=== PATIENT | female | born 1960 | race Caucasian/White ===

== ENCOUNTER 2017-10-20 09:11 | Emergency (ER) | payer BC ==
--- NOTE | 2017-10-20 10:05 | UC ---
Respiratory Complaint HPI - HPI Summary HPI Summary: Pt presents with a dry cough for 1 week. [place] and 1 week ago developed a dry cough that she now feels is developing into chest congestion. She has an albuterol inhaler with her, but has not been using it. She has not been taking anything OTC. Denies fever, chills, sore throat, SOB , chest pain, abdominal pain, n/v/d/c. - History of Current Complaint Chief Complaint: UCGeneralIllness Stated Complaint: RESP ISSUE Time Seen by Provider: 10/20/17 10:05 Hx Obtained From: Patient Onset/Duration: Gradual Onset Severity Currently: None Pain Intensity: 0 Character: Cough: Nonproductive - Allergies/Home Medications Allergies/Adverse Reactions: Allergies Allergy/AdvReac Type Severity Reaction Status Date / Time moxifloxacin [From Avelox] Allergy Hives Verified 10/20/17 09:26 Sulfa (Sulfonamide Allergy Hives Verified 10/20/17 09:26 Antibiotics) Home Medications: Home Medications ARIPiprazole TAB* [Abilify TAB*] 1 tab PO BEDTIME 10/20/17 [History Confirmed 10/20/17] Albuterol HFA INHALER* [Ventolin HFA Inhaler*] 2 puff INH Q4HR PRN 10/20/17 [ History Confirmed 10/20/17] Calcium Carb/Vitamin D3/Vit K1 [Calcium + D Soft Chewable Tab] 1 tab PO BID 09/08 [History Confirmed 10/20/17] Cetirizine* [ZyrTEC 10 MG TAB*] 10 mg PO DAILY 10/20/17 [History Confirmed 10/20] DULoxetine CAP* [Cymbalta CAP*] 1 tab PO DAILY 10/20/17 [History Confirmed ] EPINEPHrine [Epipen] 1 inj IM SEE INSTRUCTIONS PRN 10/20/17 [History Confirmed 10/20/17] Fluticasone NASAL SPRAY 50MCG* [Flonase NASAL SPRAY 50MCG*] 1 spray BOTH NARES DAILY 10/20/17 [History Confirmed 10/20/17] Fluticasone-Salmeterol 100-50* [Advair Diskus 100-50*] 1 puff INH DAILY [History Confirmed 10/20/17] Losartan/Hydrochlorothiazide [Losartan-Hctz 50-12.5 mg Tab] 1 tab PO DAILY 10/20 [History Confirmed 10/20/17] Meloxicam [Mobic] 1 tab PO DAILY 10/20/17 [History Confirmed 10/20/17] Montelukast Sodium TAB* [Singulair 10 MG TAB*] 10 mg PO DAILY 10/20/17 [History Confirmed 10/20/17] Mv-Min/Iron/Folic/Calcium/Vitk [Women's Daily Formula Tablet] 1 tab PO DAILY 09/08 [History Confirmed 10/20/17] Zolpidem TAB* [Ambien*] 1 tab PO BEDTIME 10/20/17 [History Confirmed 10/20/17] buPROPion TAB* [Wellbutrin TAB*] 100 mg PO DAILY 10/20/17 [History Confirmed 09/08] clonazePAM TAB(*) [Klonopin TAB(*)] 0.5 mg PO DAILY 10/20/17 [History Confirmed 10/20/17] PMH/Surg Hx/FS Hx/Imm Hx - Additional Past Medical History Additional PMH: Allergies Cardiovascular History: Hypertension Respiratory History: Asthma Psychological History: Anxiety, Depression, Bipolar Disorder - Surgical History Surgical History: Yes Surgery Procedure, Year, and Place: Thyroid Biopsy - Family History Known Family History: Positive: Hypertension - Social History Lives: With Family Alcohol Use: None Substance Use Type: None Smoking Status (MU): Never Smoked Tobacco Review of Systems Constitutional: Negative Skin: Negative Eyes: Negative ENT: Negative Respiratory: Cough Cardiovascular: Negative Gastrointestinal: Negative Musculoskeletal: Negative Neurological: Negative Psychological: Negative All Other Systems Reviewed And Are Negative: Yes Physical Exam - Summary Physical Exam Summary: GENERAL: NAD. WDWN. No pain distress. SKIN: No rashes, sores, ulcers, masses, lesions. No clubbing or cyanosis. HEENT: Head: AT/NC Eyes: Conjunctiva clear without inflammation or discharge. Ears: Hearing grossly normal. TMs intact, no bulging, erythema, or edema. Nose: Nasal mucosa pink and moist. NTTP maxillary and frontal sinus. Throat: Posterior oropharynx without exudates, erythema, or tonsillar enlargement. Uvula midline. NECK: Supple. Nontender. No lymphadenopathy. CHEST: CTAB. No r/r/w. No accessory muscle use. Breathing comfortably and in no distress. CV: RRR. Without m/r/g. Pulses intact. Brisk cap refill. NEURO: Alert. CN II-XII grossly intact. PSYCH: Age appropriate behavior. Triage Information Reviewed: Yes Vital Signs: Initial Vital Signs Temp 98.4 F 10/20/17 09:34 Pulse 93 10/20/17 09:34 Resp 16 10/20/17 09:34 BP 141/88 10/20/17 09:34 Pulse Ox 99 10/20/17 09:34 Diagnostic Evaluation - Laboratory O2 Sat by Pulse Oximetry: 99 Re-Evaluation - Re-Evaluation First Eval Re-Evaluation Time: 11:02 Change: Improved Comment: Subjective improvement - pt states she is breathing easier and feels her chest has "loosened" up. Respiratory Course/Dx - Course Course Of Treatment: Suspect bronchitis. Advised to try OTC mucinex and use her at home inhalers - Differential Dx/Diagnosis Provider Diagnoses: Bronchitis Discharge - Discharge Plan Condition: Stable Disposition: HOME Patient Education Materials: Acute Bronchitis (ED) Referrals: No Primary Care Phys,NOPCP [Primary Care Provider] - Additional Instructions: If you develop a fever, shortness of breath, chest pain, new or worsening symptoms - please call your PCP or go to the ED. Your blood pressure was high at todays visit. Please see your primary provider within 4 weeks for recheck and re-evaluation. 1) Please try OTC mucinex twice a day and use your at home albuterol inhaler as needed for your cough and wheezing.
[2017-10-20] MEDS ORDERED: Albuterol/Ipratropium NEB.SOL* Albuterol 2.5 MG/Ipratropium 0.5 MG 3 ML INH ONE (10:30)
== END 2017-10-20 11:00 | disposition home or self-care (01) ==
LOC: UCEAST 09:11
DX: J40 Bronchitis, not specified as acute or chronic (principal); I10 Essential (primary) hypertension; J45.909 Unspecified asthma, uncomplicated; F41.9 Anxiety disorder, unspecified; F31.9 Bipolar disorder, unspecified; Z88.1 Allergy status to other antibiotic agents; Z88.2 Allergy status to sulfonamides
CPT/HCPCS: 99202; A9270-GY; G0463